=== PATIENT | female | born 1985 | race Two or more races ===

== ENCOUNTER 2024-11-14 01:09 | Emergency (ER) | payer OTHER ==
[~2024-11-14] VITALS: Ht 162.6 cm; Wt 72.6 kg
[2024-11-14 02:08] LABS: PLATELET COUNT (AUTO) 220 K/uL (150-450); RED BLOOD CELL COUNT(AUTO) 4.18 MIL/uL (4.0-5.2); RED CELL DISTRIBUTION WIDTH 13.7 % (11.5-15.0); WHITE BLOOD COUNT (AUTO) 6.1 K/uL (4.3-11.0)
[2024-11-14 02:16] LABS: CALCIUM, SERUM 9.1 mg/dL (8.5-10.1); CREATININE 0.8 mg/dL (0.6-1.3); SODIUM SERUM 143 mmol/L (136-145); UREA NITROGEN, BLOOD 13 mg/dL (7-18)
[2024-11-14] MEDS ORDERED: ASPIRIN 325 MG TABLET ONE (02:22)
[2024-11-14] MEDS: ASPIRIN 325 MG TABLET PO ONE (02:22)
[2024-11-14] MEDS ORDERED: NITROGLYCERIN 0.4 MG/TAB BOTTLE ONE (02:22)
[2024-11-14] MEDS: NITROGLYCERIN 0.4 MG/TAB BOTTLE SL ONE (02:23)
[2024-11-14 02:29] LABS: NT-PRO BNP 32 pg/mL (0-125)
[2024-11-14 04:32] VITALS: BP 128/78; TEMP 98.2; O2SAT 97
== END 2024-11-14 04:33 | disposition home or self-care (01) ==
LOC: ER 01:12
DX: R07.89 Other chest pain (principal); R11.0 Nausea; I11.9 Hypertensive heart disease without heart failure; R06.02 Shortness of breath
CPT/HCPCS: 36415; 71045-TC; 80048-TC; 83880; 84484-TC; 85025-TC